=== PATIENT | female | born 1970 | race Caucasian/White ===

== ENCOUNTER 2022-01-15 18:28 | Emergency (ER) | payer BC, MEDICAID ==
[~2022-01-15] VITALS: Ht 170.2 cm; Wt 80.0 kg
[2022-01-15 18:37] VITALS: BP 102/96
[2022-01-15] MEDS ORDERED: DICYCLOMINE HCL 10MG CAPSULE PO ONE (20:00)
[2022-01-15] MEDS ORDERED: QUETIAPINE FUMARATE 25MG TABLET PO SCH (20:15)
[2022-01-15] MEDS ORDERED: QUETIAPINE FUMARATE 50MG TABLET PO NR ×2 (20:30)
[2022-01-15 20:43] LABS: CLARITY URINE CLEAR (CLEAR); COLOR URINE YELLOW (YELLOW); KETONES URINE TRACE (NEGATIVE); LEUKOCYTE ESTERASE URINE 1+ (NEGATIVE); NITRITE URINE NEGATIVE (NEGATIVE); OCCULT BLOOD URINE TRACE (NEGATIVE); PH URINE 5.5 (4.5-8.0); PROTEIN URINE NEGATIVE (NEGATIVE); SPECIFIC GRAVITY URINE 1.026 (1.005-1.030); UROBILINOGEN URINE 0.2 E.U./dL (0.2-1.0)
[2022-01-15] MEDS ORDERED: DICY10CA88 MT (21:28)
[2022-01-15] MEDS ORDERED: CEPH500C2 MT (21:28)
== END 2022-01-15 21:42 | disposition home or self-care (01) ==
LOC: ER 18:28
DX: N39.0 Urinary tract infection, site not specified (principal); R19.7 Diarrhea, unspecified; F99 Mental disorder, not otherwise specified; F20.9 Schizophrenia, unspecified
CPT/HCPCS: 81003; 99283